=== PATIENT | female | born 1985 | race Caucasian/White ===

== ENCOUNTER 2022-05-29 11:35 | Emergency (ER) | payer MEDICAID ==
--- NOTE | 2022-05-29 12:00 | NUR ---
ATTEMPTED TO TRIAGE PT, NO ANSWER
--- NOTE | 2022-05-29 12:06 | NUR ---
ATTEMPTED TO TRIAGE PT, NOT FOUND IN LOBBY/OUTSIDE
--- NOTE | 2022-05-29 12:17 | NUR ---
ATTEMPTED TO TRIAGE PT, NOT FOUND IN LOBBY/OUTSIDE. PATIENT LEFT WITHOUT BEING SEEN BY DR. DALEY. NO FURTHER CARE PROVIDED FOR PATIENT.
== END 2022-05-29 12:00 | disposition left against medical advice (07) ==
LOC: MED 11:35
DX: R42 Dizziness and giddiness (principal); Z53.21 Procedure and treatment not carried out due to patient leaving prior to being seen by health care provider